=== PATIENT | male | born 1945 | race Caucasian/White ===

== ENCOUNTER 2021-01-27 10:44 | Outpatient (CLI) | payer MEDICARE, OTHER, SELFPAY ==
--- NOTE | ~2021-01-27 | XR_ITS ---
XR knee LT min 4V 01/27/2021 12:01 Indication: Left knee pain Procedure: 4 views left knee Comparison: No prior studies for comparison. Findings: No fracture, subluxation or dislocation. No significant joint effusion. No foreign bodies. No joint space narrowing. Impression: 1: No significant bone or joint abnormality. Reviewed, dictated and finalized at location B. Impression: 1: No significant bone or joint abnormality.
--- NOTE | ~2021-01-27 | XR_ITS ---
EXAMINATION: HAND-SHANTEL ARTHRITIS 3+VIEWS DATE: 01/27/2021 12:01 INDICATION: Osteoarthritis with bilateral hand pain. TECHNIQUE: Posteroanterior, lateral, and oblique views of the left and of the right hands as well as a ballcatchers view of both hands were obtained. COMPARISON: None. FINDINGS: Alignment is normal. No acute fracture. Small ossicle along the tip of the right ulnar styloid proces s which could represent a chronic nonunited avulsion fracture or heterotopic ossification related to chronic soft tissue injury. Relatively symmetric pattern of polyarticular osteoarthritis, advanced wi th prominent subarticular cystic changes at the bilateral first carpometacarpal joints and severe at the bilateral radiocarpal joints with additional prominent cystic change at both sides of the right r adiolunate articulation. Additional mild osteoarthritis at the bilateral distal radioulnar, midcarpal , triscaphe and multiple bilateral interphalangeal joints. Diffuse osteopenia. IMPRESSION: 1. 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 Reviewed, dictated and finalized at location A.
--- NOTE | ~2021-01-27 | XR_ITS ---
EXAMINATION: XR lumbar spine min 4V EXAM DATE: 01/27/2021 12:01 INDICATION: Low back pain. TECHNIQUE: Lumber spine frontal, lateral, bilateral oblique projections. Coned down frontal and lat eral L5-S1 lumbar projections for interpretation. There is no prior study for comparison. FINDINGS: Lower tibial there is moderate to severe disc disease L4-5 and L5-S1. There is 2 to 3 mm re trolisthesis L3 on L4. The vertebral bodies are otherwise aligned. Moderate disc disease L2-3 and L3- 4, mild at L1-2. There is lower thoracic diffuse idiopathic skeletal hyperostosis. No spondylolysis. Moderate lower lumbar facet arthropathy. Mild aortic arterial sclerosis. Mild lumbar levoscoliosis. IMPRESSION: 1. 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 2. Mild levoscoliosis. Reviewed, dictated and finalized at location A.
[2021-01-27 12:12] LABS: Hematocrit 44.1 % (42.0-52.0); Hemoglobin 14.4 g/dL (14.0-18.0); Mean Corpuscular HGB Conc 32.7 g/dl (32-36); Mean Corpuscular Hemoglobin 28.7 pg (26-34); Platelet Count Result 264 k/mm3 (150-375); Red Blood Count 5.01 M/mm3 (4.6-6.20); Red Cell Distribution Width 14.5 % (11.5-14.5); White Blood Count 6.7 K/mm3 (4.5-10.0)
[2021-01-27 12:14] LABS: Add Urine Microscopic? YES; Appearance Urine Cloudy (Clear); Bilirubin Urine Negative (Negative); Blood Urine Negative (Negative); Color Urine Yellow (Yellow); Glucose Urine UA Negative (Negative); Ketones Urine Negative (Negative); Leukocyte Esterase Ur Negative LEU/UL (Negative); Mucus Urine Rare /lpf; Nitrate Urine Negative (Negative); Protein Urine Negative (Negative); RBC Urine 0-2 /hpf (0-2); Specific Grav Ur 1.011 (1.001-1.035); Squamous Epithelial Cell Urine Rare /hpf (Few); Urobilinogen Urine Negative mg/dL (<2.0); WBC Urine 0-3 /hpf
[2021-01-27 12:28] LABS: Alanine Aminotransferase 29 U/L (4-50); Albumin Level 4.2 g/dL (3.5-5.1); Alkaline Phosphatase 90 U/L (38-126); Anion Gap 5 mmol/L (8-16); Aspartate Amino Transferase 35 U/L (17-59); Bilirubin,Total 0.6 mg/dL (0.2-1.3); Blood Urea Nitrogen 19 mg/dL (9-20); CRP 2.1 mg/dL (<1.0); Calcium 9.1 mg/dL (8.4-10.2); Carbon Dioxide 34 mmol/L (22-30); Chloride 101 mmol/L (98-107); Estimated Glomerular Filt Rate > 60; Glucose 96 mg/dL (75-110); Potassium 3.5 mmol/L (3.4-5.0); Sodium 140 mmol/L (137-145)
[2021-01-27 12:29] LABS: Rheumatoid Factor < 8.6 IU/ML (<12)
[2021-01-27 12:51] LABS: Erythrocyte Sedimentation Rate 41 mm/hr (0-20)
[2021-02-01 11:13] LABS: Anti Cyclic Citrullinated Pept <16 Units (<20)
[2021-02-03 23:51] LABS: Anti Nuclear Antibody Pattern Nuclear, Speckled
== END 2021-01-27 10:45 | disposition home or self-care (01) ==
PROVIDERS: PCP Family Medicine; Visit Provider Internal Medicine
DX: R76.8 Other specified abnormal immunological findings in serum (principal); M25.9 Joint disorder, unspecified; M54.5 Low back pain; M51.36 Other intervertebral disc degeneration, lumbar region; M19.041 Primary osteoarthritis, right hand; M19.042 Primary osteoarthritis, left hand
CPT/HCPCS: 36415; 72110; 73130; 73564; 80053; 81001; 85027; 85652; 86038; 86039; 86140; 86200; 86430